=== PATIENT | male | born 1935 | race Caucasian/White ===

== ENCOUNTER 2019-07-12 22:00 | Inpatient (IN) | payer OTHER ==
[~2019-07-12] VITALS: Ht 188 cm; Wt 83.9 kg
[~2019-07-12 22:00] MED LIST: BACL20TA PO; CARV25TA55 PO; FENO160T8 PO; GABA300C10 PO; SIMV-13 PO; VERA120T3 PO; WARF2TAB49 PO
[2019-07-12] MEDS: PROPOFOL 100 ML IV SCH (22:15)
[2019-07-12] MEDS ORDERED: MIDAZOLAM DRIP 50 mg/50mL 50 ML IV ONE (22:24)
[2019-07-12] MEDS ORDERED: NOREPINEPHRINE 8 MG/250ML KIT 250 ML IV ONE (22:24)
[2019-07-12] MEDS ORDERED: SODIUM CHLORIDE 0.9% 2,500 ML IV ONE (22:30)
[2019-07-12] MEDS ORDERED: ATROPINE SULF 1 MG/10ml SYR IV ONE (22:30)
[2019-07-12] MEDS: NOREPINEPHRINE 8 MG/250ML KIT 250 ML IV SCH ×2 (22:32→22:48)
[2019-07-12] MEDS ORDERED: VANCOMYCIN 1GM/250ML 250 ML IV ONE (22:45)
[2019-07-12] MEDS ORDERED: PIPERACILLIN-TAZOB 3.375GM 100 ML IV ONE (22:45)
[2019-07-12 23:00] LABS: Hematocrit 26.8 % (41.0-53.0); Hemoglobin 8.6 g/dL (13.5-17.5); Mean Corpuscular Hemoglobin 31.2 pg (28.0-32.0); Mean Corpuscular Hgb Conc. 32.2 g/dL (32.0-36.0); Mean Corpuscular Volume 96.9 fL (80.0-100.0); Platelet Count (auto) 148 10^3/uL (140-450); Red Blood Cells 2.77 10^6/uL (4.5-5.90); Red Cell Distribution Width 17.5 % (11.8-14.3); White Blood Cell 13.5 10^3/uL (4.4-10.8)
[2019-07-12] MEDS: MIDAZOLAM DRIP 50 mg/50mL 50 ML IV SCH (23:02)
[2019-07-12 23:12] LABS: Basophils % (manual) 0 (0.0-2.0); Blast Cells 0; Metamyelocytes % 0; Myelocytes % 0; Promyelocytes % 0; Reactive Lymphocytes 0
[2019-07-12 23:17] LABS: Albumin 2.1 g/dL (3.4-5.0); BUN/Creatinine Ratio 10.5; Calcium 8.1 mg/dL (8.5-10.1)
[2019-07-12 23:18] LABS: Lactic Acid w/Reflex 7.6 mmol/L (0.4-2.0)
[2019-07-12 23:22] LABS: Bilirubin, Total 0.3 mg/dL (0.2-1.0); Total Protein 4.5 g/dL (6.4-8.2)
[2019-07-12 23:29] LABS: INR 2.02 (0.9-1.15); Partial Thromboplastin Time 41.6 sec (23.64-32.05)
[2019-07-13] VITALS (7 sets, daily range): BP systolic 0–160; BP diastolic 0–76
[2019-07-13] MEDS ORDERED: SODIUM BICARBONATE 50ML VIAL 50 ML in SOD CHL 0.45% 1,000 ML IV ONE (00:30)
[2019-07-13] MEDS ORDERED: SODIUM BICARBONATE 8.4 % INJ 50ML VIAL IV ONE (00:30)
[2019-07-13] MEDS ORDERED: VANCOMYCIN 1GM/250ML 250 ML IV ONE ×2 (00:45→05:00)
[2019-07-13 01:29] LABS: Band Neutrophils % (manual) 3; Eosinophils % (manual) 19 (0-7); Lymphocytes % (manual) 12 (10.0-50.0); Monocytes % (manual) 3 (0-12)
[2019-07-13] MEDS ORDERED: fentaNYL Drip 2500mCg/250mlNS 250 ML IV SCH (02:32)
[2019-07-13] MEDS ORDERED: ONDANSETRON HCL 4 MG/2 ML VIAL IV PRN (04:00)
[2019-07-13] MEDS ORDERED: VANCOMYCIN PER PHARMACY 0 MG IV SCH ×2 (04:00→06:15)
[2019-07-13] MEDS ORDERED: ACETAMINOPHEN 325 MG TAB PO PRN (04:00)
[2019-07-13] MEDS ORDERED: DEXTROSE (50%) 50ML SYRG IV PRN (04:00)
[2019-07-13] MEDS: SODIUM CHLORIDE 0.9% 1,000 ML IV SCH ×2 (04:00→17:12)
[2019-07-13] MEDS ORDERED: MORPHINE SULF INJ 2 MG/ML SYRINGE 1ML IV PRN (04:00)
[2019-07-13] MEDS ORDERED: NITROGLYCERIN 0.4 MG SL TAB SL PRN (04:00)
[2019-07-13] MEDS: PROPOFOL 100 ML IV SCH (04:16)
[2019-07-13] MEDS: MIDAZOLAM DRIP 50 mg/50mL 50 ML IV SCH ×2 (04:37→07:23)
[2019-07-13 05:55] LABS: Urine Bacteria MOD /hpf (None Seen); Urine Blood 2+ /uL (Negative); Urine Budding Yeast LOADED /hpf (None Seen); Urine Specific Gravity 1.017 (1.001-1.035); Urine WBC 674 /hpf (0 - 3); Urine WBC Clumps PRESENT /hpf (None Seen)
[2019-07-13] MEDS: PIPERACILLIN-TAZOB 2.25GM 50 ML IV SCH ×3 (06:14→18:00)
[2019-07-13] MEDS: ACCU-CHEK COMFORT CURVE STRIP VI SCH ×3 (06:14→18:00)
[2019-07-13] MEDS: InsuLIN REG 1unit/0.01ml Soln (100units/ml) SC SCH ×3 (06:28→18:00)
[2019-07-13 06:31] LABS: Amphetamine Screen, Urine NEGATIVE (NEGATIVE); Barbiturate Scree,Urine NEGATIVE (NEGATIVE); Benzodiazephine Screen, Urine POSITIVE (NEGATIVE); Cannabinoid Screen, Urine NEGATIVE (NEGATIVE)
[2019-07-13 06:39] LABS: Cocaine Screen, Urine NEGATIVE (NEGATIVE); Opiate Scree,Urine POSITIVE (NEGATIVE); Phencyclidine Screen, Urine NEGATIVE (NEGATIVE)
[2019-07-13 06:59] LABS: Potassium 3.8 mmol/L (3.5-5.1)
[2019-07-13 07:05] LABS: Albumin 2.1 g/dL (3.4-5.0); BUN/Creatinine Ratio 11.9; Calcium 7.2 mg/dL (8.5-10.1)
[2019-07-13 07:10] LABS: Bilirubin, Total 0.6 mg/dL (0.2-1.0); Total Protein 4.5 g/dL (6.4-8.2)
--- NOTE | 2019-07-13 08:33 | NUR ---
FYI-patient was with [facility] prior to admission.
[2019-07-13] MEDS ORDERED: ASPirin 81 mg TAB PO SCH (10:00)
[2019-07-13] MEDS ORDERED: PIPERACILLIN-TAZOB 2.25GM 50 ML IV SCH (12:00)
--- NOTE | 2019-07-13 15:33 | NUR ---
RT NOTE: PT. TERMINALLY EXTUBATED WITHOUT INCIDENT PER FAMILY WISH AND DR. SALINAS ORDER. PT. PLACED ON 2L N/C FOR COMFORT CARE. DARRON CRANE AT BEDSIDE.
[2019-07-13] MEDS ORDERED: MORPHINE SULFATE 4 MG/ML SYR/VIAL IV PRN (16:30)
[2019-07-13] MEDS ORDERED: LORazepam 2MG/ML-1ML VIAL IV PRN (16:30)
[2019-07-13] MEDS ORDERED: CALCIUM CHLOR(10%) 100MG/ML 10ML SYRINGE IV ONE (18:44)
[2019-07-13] MEDS ORDERED: EPINEPHrine HCL 1 MG/10 ML SYRG IV ONE (18:44)
[2019-07-13] MEDS ORDERED: SODIUM BICARBONATE 8.4% INJ 50ML SYRINGE IV ONE (18:44)
[2019-07-13] MEDS ORDERED: ATROPINE SULF 1 MG/10ml SYR IV ONE (18:44)
== END 2019-07-13 18:45 | disposition expired | DRG 871 ==
LOC: ER 22:00 → EDBD 22:00 → TELE 22:01
PROVIDERS: ADMIT Nurse Practitioner; ATTEND Internal Medicine Geriatric Medicine
PROC: 5A1935Z Respiratory Ventilation, Less than 24 Consecutive Hours (ICD-10-PCS; principal; 2019-07-12)
PROC: 5A12012 Performance of Cardiac Output, Single, Manual (ICD-10-PCS; 2019-07-12)
PROC: 0BH17EZ Insertion of Endotracheal Airway into Trachea, Via Natural or Artificial Opening (ICD-10-PCS; 2019-07-12)
DX: A41.9 Sepsis, unspecified organism (principal); J69.0 Pneumonitis due to inhalation of food and vomit; I21.9 Acute myocardial infarction, unspecified; J96.00 Acute respiratory failure, unspecified whether with hypoxia or hypercapnia; N18.4 Chronic kidney disease, stage 4 (severe); N17.9 Acute kidney failure, unspecified; I46.9 Cardiac arrest, cause unspecified; I48.91 Unspecified atrial fibrillation; I12.9 Hypertensive chronic kidney disease with stage 1 through stage 4 chronic kidney disease, or unspecified chronic kidney disease; Z66 Do not resuscitate; E11.22 Type 2 diabetes mellitus with diabetic chronic kidney disease
CPT/HCPCS: 36415; 36600; 51702; 70450; 71045; 80053; 80307; 81001; 82805; 82962; 83605; 83735; 83880; 84484; 85007; 85027; 85379; 85610; 85730; 87040; 87070; 87077; 87186; 87205; 92950; 93005; 93306; 94002; 94003; 96365; 96367; 96375; 99291; G0378; J1815; J2250; J2543; J2704